=== PATIENT | female | born 1950 | race Caucasian/White ===

== ENCOUNTER 2016-11-02 08:27 | Emergency (ER) | payer SELFPAY ==
--- NOTE | ~2016-11-02 | ER ---
PATIENT'S NAME: WYATT ROMO [facility] AGE: 65 Y [address] ROOM: [place] [address] LOCATION: [facility] ADMIT DATE: 11/02/2016 ER/Outpatient Report DISCHARGE DATE: 11/02/2016 FAMILY PHYSICIAN: Sahil Us MD ATTENDING PHYSICIAN: Drew Graff CHIEF COMPLAINT: Dark stools and possible rectal bleeding. HISTORY OF PRESENT ILLNESS: Seven days ago, the patient was admitted to a hospital in [place] for TIA-like symptoms. She was diagnosed with anemia and given transfusion. She had upper lower and lower endoscopies, which were reported to be normal, and she is scheduled for a capsule endoscopy soon. She was also started on iron supplementation at that time. This morning, however, the patient had a dark bowel movement as she just started looking at her bowel movements, and she felt this was darker than it has been recently. Shortly after that, she did develop some left upper quadrant abdominal pain as well. The pain is mild, but it is disconcerning to her, given her recent history. She elected to come in for evaluation and was most concerned about the dark stools and possibility of GI bleeding. She has no other concerns at this time. PAST MEDICAL HISTORY: Documented on the record and reviewed by me. SOCIAL HISTORY: Documented on the record and reviewed by me. MEDICATIONS: Documented on the record and reviewed by me. ALLERGIES: DOCUMENTED ON THE RECORD AND REVIEWED BY ME. REVIEW OF SYSTEMS: All systems were reviewed and are negative except as noted in the HPI. PHYSICAL EXAMINATION: VITAL SIGNS: Blood pressure was 161/84, pulse was 72, respiratory rate was 20, temperature was 98.6, and SpO2 was 94% on room air. Pain is 3/10. GENERAL: Age-appropriate female, sitting upright on the exam table. No apparent pain or distress. NEUROLOGIC: Awake and alert. GCS was 15. No focal deficits. No asymmetry. HEENT: Normocephalic and atraumatic. Eyes are PERRL. Oropharynx is clear. NECK: Supple. Trachea is midline. PATIENT'S NAME: WYATT ROMO [facility] AGE: 65 Y [address] ROOM: [place] [address] LOCATION: [facility] ADMIT DATE: 11/02/2016 ER/Outpatient Report DISCHARGE DATE: 11/02/2016 FAMILY PHYSICIAN: Sahil Us MD ATTENDING PHYSICIAN: Drew Graff CHEST: Heart is regular rate and rhythm with no murmurs. LUNGS: Clear to auscultation bilaterally with no rhonchi, wheezes, or rales. ABDOMEN: Soft, nondistended, and nontender. No masses. No guarding. Non- reproducible pain in the left upper quadrant. Bowel sounds were present throughout. BACK: Normal to inspection and palpation. RECTAL: External hemorrhoids without evidence of bleeding. Strong rectal tone. Stool is dark. EXTREMITIES: Warm and well perfused with no other deformities or edema. SKIN: Appears intact. LABORATORY DATA AND X-RAYS: No imaging was obtained for this individual. A stool Hemoccult was negative. CMS was without appreciable abnormality. Hepatobiliary labs were within appropriate limits. Amylase and lipase were not elevated. INR is less than 1. Urinalysis is likely contaminated, not consistent with infection and no evidence of renal stone. Serum lactate is 1. CBC: Hemoglobin is 9.0 and platelets of 536. IMPRESSION: 1. Dark stools. 2. Anemia. 3. Iron supplementation. 4. Transient left upper quadrant pain. EMERGENCY DEPARTMENT COURSE: The patient was seen and evaluated. She did not require any pain medication for abdominal discomfort. Her stool was heme negative. I do not think she has active bleeding at this time. Dark stools are attributed to iron supplementation. The abdominal pain is slightly disconcerning. Evaluation was given, and no acute findings. Her abdominal exam is not consistent with ischemic bowel. It remained a benign exam on repeat evaluation. I recommended a close followup as scheduled at the end of this week with Primary Care. The patient was encouraged to return if there is any worsening or other concerning signs or symptoms. She expressed her satisfaction with her evaluation and thankfulness for our care. She will be discharged home with the above instructions. MD GURWINDER URIBE/adryan PATIENT'S NAME: WYATT ROMO [facility] AGE: 65 Y [address] ROOM: [place], [place] [address] LOCATION: [facility] ADMIT DATE: 11/02/2016 ER/Outpatient Report DISCHARGE DATE: 11/02/2016 FAMILY PHYSICIAN: Sahil Us MD ATTENDING PHYSICIAN: Drew Graff /[id number] d: 11/02/162021 t: 11/19/16 1214, OUTPATIENT REPORT
[2016-11-02 09:19] LABS: BILIRUBIN URINE NEGATIVE (NEGATIVE); BLOOD URINE NEGATIVE /UL (NEGATIVE); COLOR URINE YELLOW (YELLOW); GLUCOSE URINE NEGATIVE (NEGATIVE); KETONE URINE NEGATIVE (NEGATIVE); LEUKOCYTES URINE 500 /UL (NEGATIVE); NITRITE URINE NEGATIVE (NEGATIVE); PROTEIN URINE NEGATIVE (NEGATIVE); TURBIDITY URINE CLEAR (CLEAR); UROBILINOGEN URINE NORMAL (NORMAL)
[2016-11-02 09:20] LABS: BASOPHIL # 0.1 K/uL (0.0-0.2); BASOPHIL % 1.9 %; EOSINOPHIL # 0.2 K/uL (0.0-0.5); EOSINOPHIL % 2.5 %; HEMATOCRIT 29.8 % (33.0-46.0); IMMATURE GRANULOCYTE % 0.5 %; LYMPHOCYTE # 1.1 K/uL (0.8-4.0); LYMPHOCYTE % 17.9 %; MCH 21.2 pg (27.0-34.0); MCHC 30.2 gm/dL (32.0-36.5); MCV 70.3 fl (83.0-98.0); MONOCYTE # 0.7 K/uL (0.0-1.0); MONOCYTE % 11.5 %; MPV 9.1 fl (9.4-12.4); NEUTROPHIL # (ANC) 4.2 K/uL (1.8-7.8); NEUTROPHIL % 65.7 %; NRBC % 0 /100WBC (0-0.00); PLATELET COUNT 536 K/uL (150-450); RBC 4.24 M/uL (3.50-5.50); RDW-CV 24.6 % (11.9-14.6); WBC 6.4 K/uL (4.0-11.0)
[2016-11-02 09:25] LABS: RBC URINE NEGATIVE #/HPF (NEGATIVE)
[2016-11-02 09:26] LABS: BACTERIA URINE RARE (NEGATIVE); MUCUS URINE 1+ (NEGATIVE)
[2016-11-02 09:27] LABS: INR - (THERAPEUTIC) 0.95 (0.92-1.07)
[2016-11-02 09:39] LABS: ALBUMIN 3.6 gm/dL (3.5-5.0); ALK PHOS 65 IU/L (33-138); ALT 16 IU/L (12-78); ANION GAP 12.2 (10.0-19.0); AST 19 IU/L (10-40); BLOOD UREA NITROGEN 8 mg/dL (6-24); CALCIUM 8.8 mg/dL (8.5-10.5); CHLORIDE 102 mMol/L (96-110); CO2 26 mMol/L (22-32); CREATININE 0.6 mg/dL (0.5-1.1); ESTIMATED GFR (MDRD EQUATION) > 60; POTASSIUM 4.2 mMol/L (3.7-5.1); SODIUM 136 mMol/L (135-145); TOTAL BILIRUBIN 0.3 mg/dL (0.0-1.5)
== END 2016-11-02 09:53 | disposition disaster alternative care site (69) ==
LOC: GMED 08:27
PROVIDERS: Emergency Medicine
DX: R19.5 Other fecal abnormalities (principal); D64.9 Anemia, unspecified; R10.12 Left upper quadrant pain; Z79.899 Other long term (current) drug therapy; Z87.891 Personal history of nicotine dependence